=== PATIENT | female | born 1985 ===

== ENCOUNTER 2024-11-09 08:51 | Outpatient (AMB) | payer MEDICAID, SELFPAY ==
[2024-11-09 09:07] VITALS: BP 134/82; PULSE 102; RESP 17; TEMP 36.6; O2SAT 98; BMI 34.0
--- NOTE | 2024-11-09 09:07 | AMB.OBINITIA ---
Vital Signs 11/09/24 09:07 Height 1.6 m Height Method Measured Weight 87.203 kg Weight Measurement Method Standing Scale BMI 34.0 BP 134/82 H Blood Pressure Source Automatic Cuff Blood Pressure Location Right Upper Arm Position Sitting Respiration 17 Pulse 102 H Pulse Source Monitor Temp 97.9 F Temp Source Temporal Artery Scan Pulse Oximetry (%) 98 Oxygen Delivery Method Room Air Allergies/Home Meds Allergies & Medications Allergies No Known Allergies Allergy (Verified 11/09/24 09:08) Medication Reconciliation prenat.vits,thelma,[id number] 1 tab PO QDAY 03/07/20 [History Confirmed 11/09/24] levothyroxine 25 mcg tablet 25 mcg PO QDAY 04/11/20 [History Confirmed 11/09/24] labetalol 200 mg tablet 200 mg PO BID 30 days #60 tabs 11/09/24 [Rx] Intake Visit Data Collection New Patient or Established: New Patient not seen in past [address] 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 1. Little interest or pleasure in doing things: not at all 2. Feeling down, depressed, or hopeless: not at all Total score: 0 PHQ-9 3. Trouble falling or staying asleep, or sleeping too much: Not at all 4. Feeling tired or having little energy: Not at all 5. Poor appetite or overeating: Not at all 6. Feeling bad about yourself - or that you are a failure or have let yourself or your family down: Not at all 7. Trouble concentrating on things, such as reading the newspaper or watching television: Not at all 8. Moving or speaking so slowly that other people could have noticed? - Or the opposite - being so fidgety or restless that you have been moving around a lot more than usual: not at all 9. Thoughts that you would be better off or of hurting yourself in some way: Not at all Total score: 0 If you checked off any problems, how difficult have these problems made it for you to do your work, take care of things at home, or get along with other people?: not difficult at all Source: Developed by Drs. Roscoe Sebastian, Yolie Troncoso, Bryan Santillan and colleagues, with an educational brook from [employer]. Social History Living Situation History Marital Status: Lives With: Family Housing: Apartment Tobacco History Smoking Status: Never smoker Alcohol History Alcohol Intake: Never Domestic Abuse History Do You Feel Safe at Home: Yes History of Present Illness HPI Narrative Patient is a at 11 weeks and 6 days gestation, presenting for initial care. This is an IVF with the procedure performed on September 06, 2024. She reports experiencing nausea and vomiting during this . She denies any vaginal bleeding or contractions. She has a history of one previous resulting in section delivery at 37 weeks in 2020. Her first was complicated by gestational hypertension, type 2 diabetes mellitus, and hypothyroidism. Her child is healthy and developing normally. The patient reports this was achieved through IVF performed in [place]. She has been taking aspirin, levothyroxine, Aldomet, and vitamins. She mentions she has not had a recent thyroid test. Her current is considered high-risk due to her previous complications and ongoing medical conditions. She has been experiencing nausea and vomiting but denies other concerning symptoms. 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: Past Medical History Past Medical History: No Hx Neurological Disorders, Yes Hx Hypothyroidism, Yes Hx Cardiac Disorders, Yes Hx Hypertension (GHTN), No Hx Cancer, No Hx Blood Disorders, No Hx Gastrointestinal Disorders, No Hx Renal Disease, No Hx Diabetes Mellitus Type 1 and No Hx Diabetes Mellitus Type 2 OB Initial Visit OB Flowsheet OB Flowsheet Initial Weight: Not Recorded Date <del>?</del> EGA Weight BP Alb Glu CTX Pres Fundal ht FHR Mov Dilation Station Effacement Hx Notes Visit Note 11/09/24 <del>?</del> 11w 6d 87.203 kg 134/82 158 Patient is a at 11 weeks and 6 days gestation, presenting for initial care. This is an IVF with the procedure performed on September 06, 2024. She reports experiencing nausea and vomiting during this . She denies any vaginal bleeding or contractions. - Continue vitamins - Order initial lab panel - Schedule anatomy scan ultrasound at approximately 20 weeks gestation - Follow-up appointment in 1 week to review lab results - Discontinue Aldomet - Prescribe Labetalol - Order HbA1c - Continue aspirin - Continue levothyroxine - Order thyroid function tests: TSH and free T4 - Prescribe antiemetic medication - Reassess symptoms after thyroid function test results available Menstrual History Menstrual reliability: definite Flow: normal Menstrual regularity: irregular Monthly: No Age at menarche: 17 On control pills at conception: No OB History : 2 Para: 1 Hx # Pregnancies: 0 Hx Total # of Abortions (Spontaneous & Elective): 0 # of Living Children: 1 Infection History & Risk Evaluation History of STDs: none HIV risk evaluation: low risk Hepatitis B risk evaluation: low risk Patient or partner has history of Genital Herpes: No Genetic Screening & History Genetic Screening/Teratology Counseling - Includes patient, baby's father, or anyone in either family with: 1. Patient's age 35 years or older as of estimated date of delivery: Yes 2. Thalassemia (German, Malaysian, Mediterranean, or Background); MCV less than 80: No 3. Neural Tube Defect (Meningomyelocele, Spina Bifida, or Anencephaly): No 4. Congenital Heart Defect: No 5. Down Syndrome: No 6. Hussain-Sachs (Ashkenazi Caodaism, Cajun, Nepali Harvey): No 7. Lo Disease (Ashkenazi Caodaism): No 8. Familial Dysautonomia (Ashkenazi Caodaism): No 9. Sickle Cell Disease or Trait (): No 10. Hemophilia or other blood disorders: No 11. Muscular Dystrophy: No 12. Cystic Fibrosis: No 13. [place]'s Chorea: No 14. Mental Retardation/Autism: No 15. Other inherited genetic or chromosomal disorder: No 16. Maternal Metabolic Disorder (EG,TYPE 1 Diabetes, PKU): No 17. Patient or baby's father had a child with defects not listed above: No 18. Recurrent loss or a stillbirth: No 19. Medications (including supplements, vitamins, herbs or otc drugs)/illicit/recreational drugs/alcohol since last menstrual period: No 20. Any other: No Infection History 1. Live with someone with TB or exposed to TB: No 2. Rash or viral illness since last menstrual period: No 3. Hepatitis B,C: No Other (see comments) Source: [employer] Office Procedures OB Clinic LOC & Office Proc's Nursing/Assessment Patient Status: Established Patient OB Clinic Nursing Assessment: Medication Reconciliation, Update PMH in EMR and Vital Signs OB Clinic Coordination of Care: Complex Care and Chronic Disease 1-5, Consent,records obtained, informed consent, Education Simp Pt/Fam, 4+ Authorizations needed, Lab and Imaging orders and Results/Orders obtained Special Needs: Heart tones Established Patient Charge Established Patient Point Assignment: 150 Established Patient Point Charge: EP Level 4 (120-155) Assessment & Plan Diagnosis / Problem List (1) Supervision of high risk , unspecified, first trimester: Status: Acute (2) Type 2 diabetes mellitus during , antepartum: Status: Acute (3) resulting from in-vitro fertilization: Status: Acute (4) Maternal chronic hypertension in first trimester: Status: Acute Plan Problem List: ? Intrauterine ? Chronic hypertension ? Type 2 diabetes mellitus ? Hypothyroidism ? Nausea and vomiting of ? High-risk Comprehensive Plan: - Continue vitamins - Order initial lab panel - Schedule anatomy scan ultrasound at approximately 20 weeks gestation - Follow-up appointment in 1 week to review lab results - Discontinue Aldomet and prescribe Labetalol - Monitor blood pressure at follow-up visits - Order HbA1c - Continue aspirin - Continue levothyroxine - Order thyroid function tests: TSH and free T4 - Prescribe antiemetic medication - Code as high-risk for insurance purposes - Order comprehensive metabolic panel - Perform NIPT - Order maternity genome test
== END 2024-11-09 09:53 | disposition home or self-care (01) ==
LOC: HODSOBC 08:51
PROVIDERS: Supervising Provider Obstetrics & Gynecology; Visit Provider Obstetrics & Gynecology
DX: O09.521 Supervision of elderly multigravida, first trimester (principal); O09.891 Supervision of other high risk pregnancies, first trimester; O09.811 Supervision of pregnancy resulting from assisted reproductive technology, first trimester; O09.291 Supervision of pregnancy with other poor reproductive or obstetric history, first trimester; O24.111 Pre-existing type 2 diabetes mellitus, in pregnancy, first trimester; Z3A.11 11 weeks gestation of pregnancy; E11.9 Type 2 diabetes mellitus without complications; O10.911 Unspecified pre-existing hypertension complicating pregnancy, first trimester; O99.281 Endocrine, nutritional and metabolic diseases complicating pregnancy, first trimester; E03.9 Hypothyroidism, unspecified; O34.219 Maternal care for unspecified type scar from previous cesarean delivery; O21.9 Vomiting of pregnancy, unspecified; Z79.899 Other long term (current) drug therapy; Z79.890 Hormone replacement therapy
CPT/HCPCS: 99214; G0463

== ENCOUNTER 2024-11-15 10:13 | Outpatient (AMB) | payer MEDICAID, SELFPAY ==
[2024-11-15 10:38] VITALS: BP 148/83; PULSE 105; RESP 16; TEMP 36.2; O2SAT 98; BMI 34.2
--- NOTE | 2024-11-15 10:38 | OBCLNT_ITS ---
Vital Signs 11/15/24 10:38 Height 1.6 m Height Method Stated Weight 87.6 kg Weight Measurement Method Standing Scale BMI 34.2 BP 148/83 H Blood Pressure Source Automatic Cuff Blood Pressure Location Left Upper Arm Position Sitting Respiration 16 Pulse 105 H Pulse Source Monitor Temp 97.2 F Temp Source Oral Pulse Oximetry (%) 98 Oxygen Delivery Method Room Air Allergies/Home Meds Allergies & Medications Allergies No Known Allergies Allergy (Verified 11/15/24 10:39) Medication Reconciliation prenat.vits,thelma,[id number] 1 tab PO QDAY 03/07/20 [History Confirmed 11/15/24] levothyroxine 25 mcg tablet 25 mcg PO QDAY 04/11/20 [History Confirmed 11/15/24] labetalol 200 mg tablet 200 mg PO BID 30 days #60 tabs 11/09/24 [Rx Confirmed 11/15/24] ondansetron 4 mg disintegrating tablet 4 mg PO Q6H PRN nausea and vomiting 30 days #120 tabs 11/10/24 [Rx Confirmed 11/15/24] Intake Visit Data Collection New Patient or Established: Established Patient (seen at [facility] within 3 years) Reason for Visit:: OBC Seen by Clinical Staff ONLY (RN/MA): No Network Technology Instructor Required: Yes Network Technology Instructor's name/title: AMITA SKAGGS MA Do You Feel Safe at Home: Yes Authorities Contacted: N/A PCP or OBGYN visit in last 3 months: Yes Date of Last PCP or OBGYN visit: 11/09/24 Hx Now: Yes Are you currently on any form of Control: No Pain Present Currently: No Pain Scale Used: Michael-Irvin/Numerical Pain scale:: 0 Smoking Status Smoking Status: Never smoker Questionnaires Covid-19 Vaccine Questionnaire Has patient been vacinated for Covid-19 Have you been vacinated for Covid-19: Yes PHQ-9 PHQ-2 Over the last 2 weeks, how often have you been bothered by any of the following problems? 1. Little interest or pleasure in doing things: not at all 2. Feeling down, depressed, or hopeless: not at all Total score: 0 PHQ-9 3. Trouble falling or staying asleep, or sleeping too much: Not at all 4. Feeling tired or having little energy: Not at all 5. Poor appetite or overeating: Not at all 6. Feeling bad about yourself - or that you are a failure or have let yourself or your family down: Not at all 7. Trouble concentrating on things, such as reading the newspaper or watching television: Not at all 8. Moving or speaking so slowly that other people could have noticed? - Or the opposite - being so fidgety or restless that you have been moving around a lot more than usual: not at all 9. Thoughts that you would be better off or of hurting yourself in some way: Not at all Total score: 0 If you checked off any problems, how difficult have these problems made it for you to do your work, take care of things at home, or get along with other people?: not difficult at all Source: Developed by Drs. Roscoe Sebastian, Yolie Troncoso, Bryan Santillan and colleagues, with an educational brook from [employer]. 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 She is experiencing some discomfort attributed to a recent change in her medication. She mentions feeling a little bit like that, suggesting some ongoing symptoms related to the medication transition. The clinician has reassured her that this discomfort will improve with the medication adjustment. She has chronic hypertension currently managed with labetalol. The patient appears to be experiencing some side effects or adjustment issues with this medication, prompting discussion about changing medicines and the need for a stronger prescription. The clinician has prescribed a stronger medication and advised that she can take both medications to manage her symptoms more effectively. The patient conceived through IVF and has an obstetric history of A0 L0. She is currently taking labetalol for chronic hypertension and vitamins, though she recently changed her vitamins and is experiencing some discomfort during this transition. ROS: Not documented. Care OB Visit Log OB Flowsheet Initial Weight: Not Recorded Date -?-?-?-?-?-?-?-?-?-?-?-?- EGA Weight BP Alb Glu CTX Pres Fundal ht FHR Mov Dilation Station Effacement Hx Notes Visit Note 11/09/24 -?-?-?-?-?-?-?-?-?-?-?-?- 11w 6d 87.203 kg 134/82 158 Patient is a at 11 weeks and 6 days gestation, presenting for initial care. This is an IVF with the procedure performed on September 06, 2024. She reports experiencing nausea and vomiting during this . She denies any vaginal bleeding or contractions. - Continue prena naheed vitamins - Order initial lab panel - Schedule anatomy scan ultrasound at ap proximately 20 weeks gestation - Follow-up appointment in 1 week to rev iew lab results - Discontinue Aldomet - Prescribe Labetalol - Order HbA1c - Continue aspirin - Continue levothyroxine - Order thyroid function tests: TSH and free T4 - Prescribe antiemetic medication - Reassess symptoms after thyroid functi on test results available 11/15/24 -?-?-?-?--?-?-?-?-?-?-?-?- 12w 5d 87.6 kg 148/83 155 12w5d IVF with chronic HTN on labetalol, labs and genetic screening normal, FHR reassuring, mild side effects from medication. Plan: C ontinue labetalol, add stronger antiemetic, MFM referral pending for [place], f/u in 4 weeks. CHERELLE Calculator Estimated Delivery Date Method Current WG Current Estimate 05/25/25 Ultrasound #1 13w 0d Specific Issue/Plans - Hepatitis B: Negative - Hepatitis C: Negative - RPR: Nonreactive - Rubella: Immune - Blood group: A-positive - Antibody screen: Negative - HIV: Negative - Gonorrhea: Negative - Chlamydia: Negative - CBC: Hemoglobin 14.3 g/dL, Platelets 244 - Urinalysis: Trace ketones - Maternity testing: Negative for all trisomies - CMP: Glucose 80 mg/dL, Creatinine 0.5 mg/dL, Electrolytes within normal limits - Hemoglobin A1C: 5.4% - Free T4: 1.2 ng/dL - TSH: 1.47 mIU/L Notes Visit Date: 11/09/24 Last Updated by: Clemente Bermudez MD Problem List: ? Intrauterine ? Chronic hypertension ? Type 2 diabetes mellitus ? Hypothyroidism ? Nausea and vomiting of ? High-risk Exam General General Appearance: alert, in no apparent distress and healthy appearing Head Head exam: atraumatic Neck Neck exam: Present normal inspection and trachea midline Chest Chest inspection: Present normal inspection and symmetric chest wall rise External exam: Present normal external exam; Absent tenderness Neuro Neurological exam: Present oriented X3 Psych Psychiatric exam: Present normal affect and normal mood Office Procedures OB Clinic LOC & Office Proc's Nursing/Assessment Patient Status: Established Patient OB Clinic Nursing Assessment: Medication Reconciliation, Update PMH in EMR and Vital Signs OB Clinic Coordination of Care: Education Complex Pt/Fam, Consent,records obtained, informed consent, Lab and Imaging orders, Results/Orders obtained and Staff clarify orders Special Needs: Heart tones Established Patient Charge Established Patient Point Assignment: 115 Established Patient Point Charge: EP Level 3 (80-115) Assessment & Plan Diagnosis / Problem List (1) Maternal chronic hypertension in first trimester: Status: Acute (2) Supervision of high risk , unspecified, first trimester: Status: Acute (3) resulting from in-vitro fertilization: Status: Acute
== END 2024-11-15 10:58 | disposition home or self-care (01) ==
LOC: HODSOBC 10:13
PROVIDERS: Supervising Provider Obstetrics & Gynecology; Visit Provider Obstetrics & Gynecology
DX: O09.521 Supervision of elderly multigravida, first trimester (principal); O09.891 Supervision of other high risk pregnancies, first trimester; O10.911 Unspecified pre-existing hypertension complicating pregnancy, first trimester; O09.811 Supervision of pregnancy resulting from assisted reproductive technology, first trimester; O99.281 Endocrine, nutritional and metabolic diseases complicating pregnancy, first trimester; E03.9 Hypothyroidism, unspecified; Z3A.12 12 weeks gestation of pregnancy; Z79.890 Hormone replacement therapy; Z79.899 Other long term (current) drug therapy
CPT/HCPCS: 99213; G0463

== ENCOUNTER 2024-12-21 09:14 | Outpatient (AMB) | payer MEDICAID, SELFPAY ==
[2024-12-21 09:45] VITALS: BP 154/84; PULSE 98; RESP 19; TEMP 36.6; O2SAT 98; BMI 34.4
--- NOTE | 2024-12-21 09:45 | OBCLNT_ITS ---
Vital Signs 12/21/24 09:45 Height 1.6 m Height Method Stated Weight 88.11 kg Weight Measurement Method Standing Scale BMI 34.4 BP 154/84 H Blood Pressure Source Automatic Cuff Blood Pressure Location Right Upper Arm Position Sitting Respiration 19 Pulse 98 Pulse Source Monitor Temp 97.8 F Temp Source Temporal Artery Scan Pulse Oximetry (%) 98 Oxygen Delivery Method Room Air Allergies/Home Meds Allergies & Medications Allergies No Known Allergies Allergy (Verified 11/15/24 10:39) Intake Visit Data Collection New Patient or Established: Established Patient (seen at [facility] within 3 years) Reason for Visit:: 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 1. Little interest or pleasure in doing things: not at all PHQ-9 8. Moving or speaking so slowly that other people could have noticed? - Or the opposite - being so fidgety or restless that you have been moving around a lot more than usual: not at all Source: Developed by Drs. Roscoe Sebastian, Yolie Troncoso, Bryan Santillan and colleagues, with an educational brook from [employer]. 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 History Past Medical History: No Hx Neurological Disorders, Yes Hx Hypothyroidism, Yes Hx Cardiac Disorders, Yes Hx Hypertension (GHTN), No Hx Cancer, No Hx Blood Disorders, No Hx Gastrointestinal Disorders, No Hx Renal Disease, No Hx Diabetes Mellitus Type 1 and No Hx Diabetes Mellitus Type 2 Care OB Visit Log OB Flowsheet Initial Weight: Not Recorded Date -?-?-?-?-?-?-?-?-?-?-?-?- EGA Weight BP Alb Glu CTX Pres Fundal ht FHR Mov Dilation Station Effacement Hx Notes Visit Note 11/09/24 -?-?-?-?-?-?-?-?-?-?-?-?- 11w 6d 87.203 kg 134/82 158 Patient is a at 11 weeks and 6 days gestation, presenting for initial care. This is an IVF with the procedure performed on September 06, 2024. She reports experiencing nausea and vomiting during this . She denies any vaginal bleeding or contractions. - Continue prena naheed vitamins - Order initial lab panel - Schedule anatomy scan ultrasound at ap proximately 20 weeks gestation - Follow-up appointment in 1 week to rev iew lab results - Discontinue Aldomet - Prescribe Labetalol - Order HbA1c - Continue aspirin - Continue levothyroxine - Order thyroid function tests: TSH and free T4 - Prescribe antiemetic medication - Reassess symptoms after thyroid functi on test results available 11/15/24 -?-?-?-?-?-?-?-?-?-?-?-?- 12w 5d 87.6 kg 148/83 155 12w5d IVF with chronic HTN on labetalol, labs and genetic screening normal, FHR reassuring, mild side effects from medication. Plan: C ontinue labetalol, add stronger antiemetic, MFM referral pending for [place], f/u in 4 weeks. 12/21/24 -?-?-?-?-?-?-?-?-?-?-?-?- 17w 6d 88.11 kg 154/84 145 - She has chronic hypertension currently managed with labetalol. - Patient is due for AFP (alpha-fetoprotein) screening. - AFP testing due CHERELLE Calculator Estimated Delivery Date Method Current WG Current Estimate 05/25/25 Ultrasound #1 20w 4d Specific Issue/Plans - Hepatitis B: Negative - Hepatitis C: Negative - RPR: Nonreactive - Rubella: Immune - Blood group: A-positive - Antibody screen: Negative - HIV: Negative - Gonorrhea: Negative - Chlamydia: Negative - CBC: Hemoglobin 14.3 g/dL, Platelets 244 - Urinalysis: Trace ketones - Maternity testing: Negative for all trisomies - CMP: Glucose 80 mg/dL, Creatinine 0.5 mg/dL, Electrolytes within normal limits - Hemoglobin A1C: 5.4% - Free T4: 1.2 ng/dL - TSH: 1.47 mIU/L Notes Visit Date: 11/09/24 Last Updated by: Clemente Bermudez MD Problem List: ? Intrauterine ? Chronic hypertension ? Type 2 diabetes mellitus ? Hypothyroidism ? Nausea and vomiting of ? High-risk Office Procedures OBC Clinic LOC & Office Proc's Nursing/Assessment Patient Status: Established Patient OB Clinic Nursing Assessment: Medication Reconciliation, Update PMH in EMR and Vital Signs OB Clinic Coordination of Care: Complex Care and Chronic Disease 1-5, Education Complex Pt/Fam, Consent,records obtained, informed consent, 1 Ins Authorization, Lab and Imaging orders and Results/Orders obtained Special Needs: Heart tones Established Patient Charge Established Patient Point Assignment: 145 Established Patient Point Charge: EP Level 3 (80-115) Assessment & Plan Diagnosis / Problem List (1) Acute vaginitis: Status: Acute (2) Maternal chronic hypertension in first trimester: Status: Acute (3) Supervision of high risk , unspecified, first trimester: Status: Acute Plan Problem List - - Chronic hypertension Assessment The patient is a 8 at 10 weeks and 6 days gestation with chronic hypertension currently managed on labetalol, with today's blood pressure reading of 154/84 mmHg indicating suboptimal control. The patient is due for AFP screening. Plan - AFP testing due 1. Progress Reviewed gestational age, growth, and heart rate. Planned frequent visits (every 2 weeks until 36 weeks, then weekly). 2. Instructed patient to monitor movements and report decreases immediately. 3. Testing Counseled on routine third-trimester labs per guidelines. Discussed potential need for ultrasound or monitoring based on risk factors. 4. Preeclampsia Precaution Educated on preeclampsia signs: severe headache, vision changes, right upper quadrant pain, sudden swelling. Advised urgent reporting of symptoms and discussed blood pressure monitoring if high risk. 5. Labor Precautions Reviewed labor signs: regular contractions, pelvic pressure, back pain, bleeding, or fluid leakage. Instructed to seek immediate care for these symptoms. 6. Lifestyle and Delivery Preparation Reinforced vitamins, nutrition, and safe activity. Discussed plan, pain management, and . Advised on labor preparation (e.g., hospital bag) and expectations. 7. Psychosocial Support Assessed emotional well-being and offered resources for mental health or parenting support.
== END 2024-12-21 10:08 | disposition home or self-care (01) ==
LOC: HODSOBC 09:14
PROVIDERS: Supervising Provider Obstetrics & Gynecology; Visit Provider Obstetrics & Gynecology
DX: O09.892 Supervision of other high risk pregnancies, second trimester (principal); O23.592 Infection of other part of genital tract in pregnancy, second trimester; N76.0 Acute vaginitis; O10.912 Unspecified pre-existing hypertension complicating pregnancy, second trimester; O09.522 Supervision of elderly multigravida, second trimester; Z3A.17 17 weeks gestation of pregnancy; Z79.899 Other long term (current) drug therapy
CPT/HCPCS: 99213; G0463

== ENCOUNTER 2025-01-18 10:11 | Outpatient (AMB) | payer MEDICAID, SELFPAY ==
[2025-01-18 10:26] VITALS: BP 137/78; PULSE 102; RESP 18; TEMP 36.2; O2SAT 98; BMI 34.6
--- NOTE | 2025-01-18 10:26 | OBCLNT_ITS ---
Vital Signs 01/18/25 10:26 Height 1.6 m Height Method Stated Weight 88.677 kg Weight Measurement Method Standing Scale BMI 34.6 BP 137/78 H Blood Pressure Source Automatic Cuff Blood Pressure Location Left Upper Arm Position Sitting Respiration 18 Pulse 102 H Pulse Source Monitor Temp 97.2 F Temp Source Oral Pulse Oximetry (%) 98 Oxygen Delivery Method Room Air Allergies/Home Meds Allergies & Medications Allergies No Known Allergies Allergy (Verified 01/18/25 10:28) Medication Reconciliation prenat.vits,thelma,[id number] 1 tab PO QDAY 03/07/20 [History Confirmed 01/18/25] levothyroxine 25 mcg tablet 25 mcg PO QDAY 04/11/20 [History Confirmed 01/18/25] labetalol 200 mg tablet 400 mg (2 x 200 mg) PO BID 30 days #120 tabs 12/21/24 [Rx Confirmed 01/18/25] Intake Visit Data Collection New Patient or Established: Established Patient (seen at [facility] within 3 years) Reason for Visit:: OBC Seen by Clinical Staff ONLY (RN/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 Do You Feel Safe at Home: Yes Authorities Contacted: N/A PCP or OBGYN visit in last 3 months: Yes Date of Last PCP or OBGYN visit: 12/21/24 Hx Now: Yes Are you currently on any form of Control: No Pain Present Currently: No Pain Scale Used: Michael-Irvin/Numerical Pain scale:: 0 Smoking Status Smoking Status: Never smoker Immunizations Flu Vaccine in the Last 12 Months: No Flu Vaccine Exclusion Criteria: No Exclusion Criteria Questionnaires Covid-19 Vaccine Questionnaire Has patient been vacinated for Covid-19 Have you been vacinated for Covid-19: Yes PHQ-9 PHQ-2 Over the last 2 weeks, how often have you been bothered by any of the following problems? 1. Little interest or pleasure in doing things: not at all 2. Feeling down, depressed, or hopeless: not at all Total score: 0 PHQ-9 3. Trouble falling or staying asleep, or sleeping too much: Not at all 4. Feeling tired or having little energy: Not at all 5. Poor appetite or overeating: Not at all 6. Feeling bad about yourself - or that you are a failure or have let yourself or your family down: Not at all 7. Trouble concentrating on things, such as reading the newspaper or watching television: Not at all 8. Moving or speaking so slowly that other people could have noticed? - Or the opposite - being so fidgety or restless that you have been moving around a lot more than usual: not at all 9. Thoughts that you would be better off or of hurting yourself in some way: Not at all Total score: 0 If you checked off any problems, how difficult have these problems made it for you to do your work, take care of things at home, or get along with other people?: not difficult at all Source: Developed by Drs. Roscoe Sebastian, Yolie Troncoso, Bryan Santillan and colleagues, with an educational brook from [employer]. 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: Past Medical History Past Medical History: No Hx Neurological Disorders, Yes Hx Hypothyroidism, Yes Hx Cardiac Disorders, Yes Hx Hypertension (GHTN), No Hx Cancer, No Hx Blood Disorders, No Hx Gastrointestinal Disorders, No Hx Renal Disease, No Hx Diabetes Mellitus Type 1 and No Hx Diabetes Mellitus Type 2 Care OB Visit Log OB Flowsheet Initial Weight: Not Recorded Date -?-?-?-?-?-?-?-?-?-?-?-?- EGA Weight BP Alb Glu CTX Pres Fundal ht FHR Mov Dilation Station Effacement Hx Notes Visit Note 11/09/24 -?-?-?-?-?-?-?-?-?-?-?-?- 11w 6d 87.203 kg 134/82 158 Patient is a at 11 weeks and 6 days gestation, presenting for initial care. This is an IVF with the procedure performed on September 06, 2024. She reports experiencing nausea and vomiting during this . She denies any vaginal bleeding or contractions. - Continue prena naheed vitamins - Order initial lab panel - Schedule anatomy scan ultrasound at ap proximately 20 weeks gestation - Follow-up appointment in 1 week to rev iew lab results - Discontinue Aldomet - Prescribe Labetalol - Order HbA1c - Continue aspirin - Continue levothyroxine - Order thyroid function tests: TSH and free T4 - Prescribe antiemetic medication - Reassess symptoms after thyroid functi on test results available 11/15/24 -?-?-?-?-?-?-?-?-?-?-?-?- 12w 5d 87.6 kg 148/83 155 12w5d IVF with chronic HTN on labetalol, labs and genetic screening normal, FHR reassuring, mild side effects from medication. Plan: C ontinue labetalol, add stronger antiemetic, MFM referral pending for Leia, f/u in 4 weeks. 12/21/24 -?-?-?-?-?-?-?-?-?-?-?-?- 17w 6d 88.11 kg 154/84 145 - She has chronic hypertension currently managed with labetalol. - Patient is due for AFP (alpha-fetoprotein) screening. - AFP testing due 01/18/25 -?-?-?-?-?-?-?-?-?-?-?-?- 21w 6d 88.677 kg 137/78 absent cephalic 22 154 active - She reports improved blood pressure control since last visit. - Blood pressure at last appointment w as 150/84 mmHg - Current blood pressure improved to 1 37/78 mmHg - Patient switched from Aldomet to Labet alol for blood pressure management. - Initially prescribed 2 tablets in mo rning and 2 at night - Dose was reduced to 1 tablet due to visual symptoms and improved control - She monitors blood pressure at home an d reports home readings are typically lower than office measurements. - Patient is taking baby aspirin as pres cribed. - She had MFM ultrasound on January 10, 2025. - Patient has upcoming echocardiog yoanna scheduled for January 24, 2025. - This is an IVF with history of di-di twins with twin loss in first trimester. - Continue labet alol for gestational hypertension management - Continue baby aspirin - Return in 4 weeks for next vi sit - Glucose tolerance test to be performed at next visit - echocardiogram scheduled for Jan - Patient advised not to check blood pre ssure daily to avoid anxiety CHERELLE Calculator Estimated Delivery Date Method Current WG Current Estimate 05/25/25 Ultrasound #1 21w 6d Specific Issue/Plans - Hepatitis B: Negative - Hepatitis C: Negative - RPR: Nonreactive - Rubella: Immune - Blood group: A-positive - Antibody screen: Negative - HIV: Negative - Gonorrhea: Negative - Chlamydia: Negative - CBC: Hemoglobin 14.3 g/dL, Platelets 244 - Urinalysis: Trace ketones - Maternity testing: Negative for all trisomies - CMP: Glucose 80 mg/dL, Creatinine 0.5 mg/dL, Electrolytes within normal limits - Hemoglobin A1C: 5.4% - Free T4: 1.2 ng/dL - TSH: 1.47 mIU/L Notes Visit Date: 01/18/25 Last Updated by: Clemente Bermudez MD - [facility] ultrasound (01/10/2025): - Estimated weight (EFW): 384 grams, 90th percentile - Cervical length: 3.77 centimeters - Detailed anatomy survey: within normal limits - Posterior placenta - Di-di twins with twin loss in first trimester and remnants of previous sac without crown rump length or cardiac activity Problem List - Gestational hypertension - Hypothyroidism - Twin with twin loss in first trimester - IVF Visit Date: 11/09/24 Last Updated by: Clemente Bermudez MD Problem List: ? Intrauterine ? Chronic hypertension ? Type 2 diabetes mellitus ? Hypothyroidism ? Nausea and vomiting of ? High-risk Office Procedures OBC Clinic LOC & Office Proc's Nursing/Assessment Patient Status: Established Patient OB Clinic Nursing Assessment: Medication Reconciliation, Update PMH in EMR and Vital Signs OB Clinic Coordination of Care: Consent,records obtained, informed consent, Education Simp Pt/Fam, Lab and Imaging orders, Results/Orders obtained and Staff clarify orders Special Needs: Heart tones Established Patient Charge Established Patient Point Assignment: 110 Established Patient Point Charge: EP Level 3 (80-115) Assessment & Plan Diagnosis / Problem List (1) Gestational [-induced] hypertension without significant proteinuria, unspecified trimester: Status: Acute (2) Hypothyroidism, unspecified: Status: Acute (3) Continuing after spontaneous of one fetus or more, unspecified trimester, not applicable or unspecified: Status: Acute Plan Problem List - Gestational hypertension - Hypothyroidism - Twin with twin loss in first trimester - IVF Assessment 21 weeks and 6 days gestational age IVF with gestational hypertension showing improvement from previous blood pressure of 150/84 to current 137/78 on labetalol therapy. Patient has di-di twins with twin loss in first trimester and remnants of previous sac without crown or cardiac activity. Recent [facility] ultrasound on 01/10/2025 shows estimated weight of 384 grams at 90th percentile with detailed anatomy survey within normal limits. Cervical length measures 3.77 centimeters. Patient also has well-controlled hypothyroidism on levothyroxine with posterior placenta noted. heart rate is 154 bpm which is normal. Plan - Continue labetalol for gestational hypertension management - Continue baby aspirin - Return in 4 weeks for next visit - Glucose tolerance test to be performed at next visit - echocardiogram scheduled for January 24, 2025 - Patient advised not to check blood pressure daily to avoid anxiety 1. Progress Reviewed gestational age (21 weeks 6 days), growth (EFW 384 grams, 90th percentile), and heart rate (154 bpm, normal). Planned frequent visits (every 2 weeks until 36 weeks, then weekly). 2. Instructed patient to monitor movements and report decreases immediately. 3. Testing Counseled on routine third-trimester labs per guidelines (glucose test scheduled for next visit). Discussed potential need for ultrasound or monitoring based on risk factors ( echo scheduled for 01/24/2025, [facility] follow-up). 4. Preeclampsia Precaution Educated on preeclampsia signs: severe headache, vision changes, right upper q uadrant pain, sudden swelling. Advised urgent reporting of symptoms and discussed blood pressure monitoring if high risk (patient has gestational hypertension, currently on labetalol). 5. Labor Precautions Reviewed labor signs: regular contractions, pelvic pressure, back pain, bleeding, or fluid leakage. Instructed to seek immediate care for these symptoms. 6. Lifestyle and Delivery Preparation Reinforced vitamins, nutrition, and safe activity (taking baby aspirin as prescribed). Discussed plan, pain management, and . Advised on labor preparation (e.g., hospital bag) and expectations. 7. Psychosocial Support Assessed emotional well-being and offered resources for mental health or parenting support.
== END 2025-01-18 10:47 | disposition home or self-care (01) ==
LOC: HODSOBC 10:11
PROVIDERS: Supervising Provider Obstetrics & Gynecology; Visit Provider Obstetrics & Gynecology
DX: O09.892 Supervision of other high risk pregnancies, second trimester (principal); O13.2 Gestational [pregnancy-induced] hypertension without significant proteinuria, second trimester; O99.282 Endocrine, nutritional and metabolic diseases complicating pregnancy, second trimester; E03.9 Hypothyroidism, unspecified; O09.812 Supervision of pregnancy resulting from assisted reproductive technology, second trimester; O30.042 Twin pregnancy, dichorionic/diamniotic, second trimester; O31.12X0 Continuing pregnancy after spontaneous abortion of one fetus or more, second trimester, not applicable or unspecified; Z3A.21 21 weeks gestation of pregnancy; Z79.890 Hormone replacement therapy
CPT/HCPCS: 99213; G0463

== ENCOUNTER 2025-02-15 13:40 | Observation (INO) | payer MEDICAID, SELFPAY ==
[2025-02-15] VITALS (15 sets, daily range): BP systolic 120–142; BP diastolic 65–72; PULSE 107–117; RESP 22–99; TEMP 36.9; O2SAT 98–100; BMI 35.4
[2025-02-15] MEDS: guaiFENesin/COD SYRUP 5 ML UDC PO (14:51)
[2025-02-15 15:20] LABS: COVID-19 Antigen (In-House) Negative (Negative)
[2025-02-15 15:22] LABS: Influenza A Ag Positive; Influenza B Ag Negative
== END 2025-02-15 15:36 | disposition home or self-care (01) ==
PROVIDERS: Admitting Provider Obstetrics & Gynecology; Visit Provider Obstetrics & Gynecology
DX: O26.892 Other specified pregnancy related conditions, second trimester (principal); Z3A.25 25 weeks gestation of pregnancy; R05.9 Cough, unspecified; M54.6 Pain in thoracic spine; R10.9 Unspecified abdominal pain
CPT/HCPCS: 59025; 59899; 87502; 87811; A9270

== ENCOUNTER 2025-02-21 10:53 | Outpatient (AMB) | payer MEDICAID, SELFPAY ==
--- NOTE | 2025-02-21 10:58 | OBCLNT_ITS ---
Vital Signs 02/21/25 11:13 Height 1.6 m Height Method Stated Weight 90.378 kg Weight Measurement Method Standing Scale BMI 35.3 BP 123/84 Blood Pressure Source Automatic Cuff Blood Pressure Location Left Upper Arm Position Sitting Respiration 18 Pulse 92 Pulse Source Monitor Temp 97.7 F Temp Source Oral Pulse Oximetry (%) 98 Oxygen Delivery Method Room Air Allergies/Home Meds Allergies & Medications Allergies No Known Allergies Allergy (Verified 02/21/25 11:13) Medication Reconciliation prenat.vits,thelma,[id number]-[id number] 1 tab PO QDAY 03/07/20 [History Confirmed 02/21/25] labetalol 200 mg tablet 400 mg (2 x 200 mg) PO BID 30 days #120 tabs 12/21/24 [Rx Confirmed 02/21/25] levothyroxine 25 mcg tablet 25 mcg PO QDAY 90 days #90 tabs 01/23/25 [Rx Confirmed 02/21/25] azithromycin 250 mg tablet (Zithromax Z-Michael) See Rx Instructions PO .COMPLEX #6 tabs 02/15/25 [Rx Confirmed 02/21/25] promethazine 6.25 mg-codeine 10 mg/5 mL syrup 5 ml PO Q6H PRN cough #118 mL 02/15/25 [Rx Confirmed 02/21/25] Immunizations Immunizations Flu Vaccine in the Last 12 Months: No Flu Vaccine Exclusion Criteria: Refused by Patient Care OB Visit Log OB Flowsheet Initial Weight: Not Recorded Date -?-?-?-?-?-?-?-?-?-?-?-?- EGA Weight BP Alb Glu CTX Pres Fundal ht FHR Mov Dilation Station Effacement Hx Notes Visit Note 11/09/24 -?-?--?-?-?-?-?-?-?-?-?-?- 11w 6d 87.203 kg 134/82 158 Patient is a at 11 weeks and 6 days gestation, presenting for initial care. This is an IVF with the procedure performed on September 06, 2024. She reports experiencing nausea and vomiting during this . She denies any vaginal bleeding or contractions. - Continue prena naheed vitamins - Order initial lab panel - Schedule anatomy scan ultrasound at ap proximately 20 weeks gestation - Follow-up appointment in 1 week to rev iew lab results - Discontinue Aldomet - Prescribe Labetalol - Order HbA1c - Continue aspirin - Continue levothyroxine - Order thyroid function tests: TSH and free T4 - Prescribe antiemetic medication - Reassess symptoms after thyroid functi on test results available 11/15/24 -?-?-?-?-?-?-?-?-?-?-?-?- 12w 5d 87.6 kg 148/83 155 12w5d IVF with chronic HTN on labetalol, labs and genetic screening normal, FHR reassuring, mild side effects from medication. Plan: C ontinue labetalol, add stronger antiemetic, MFM referral pending for Leia, f/u in 4 weeks. 12/21/24 -?-?-?-?-?-?-?-?-?-?-?-?- 17w 6d 88.11 kg 154/84 145 - She has chronic hypertension currently managed with labetalol. - Patient is due for AFP (alpha-fetoprotein) screening. - AFP testing due 01/18/25 -?-?-?-?-?-?-?-?-?-?-?-?- 21w 6d 88.677 kg 137/78 absent cephalic 22 154 active - She reports improved blood pressure control since last visit. - Blood pressure at last appointment w as 150/84 mmHg - Current blood pressure improved to 1 37/78 mmHg - Patient switched from Aldomet to Labet alol for blood pressure management. - Initially prescribed 2 tablets in mo rning and 2 at night - Dose was reduced to 1 tablet due to visual symptoms and improved control - She monitors blood pressure at home an d reports home readings are typically lower than office measurements. - Patient is taking baby aspirin as pres cribed. - She had MFM ultrasound on January 10, 2025. - Patient has upcoming echocardiog yoanna scheduled for January 24, 2025. - This is an IVF with history of di-di twins with twin loss in first trimester. - Continue labet alol for gestational hypertension management - Continue baby aspirin - Return in 4 weeks for next vi sit - Glucose tolerance test to be performed at next visit - echocardiogram scheduled for Jan - Patient advised not to check blood pre ssure daily to avoid anxiety 02/21/25 -?-?-?-?-?-?-?-?-?-?-?-?- 26w 5d 90.378 kg 123/84 absent cephalic 27 149 active - She reports that the baby is active. - She denies headaches or other symptoms . - She has been taking medication for a c ough but plans to discontinue once the cough resolves. - Obtain monoglu cose test for diabetes screening - Repeat thyroid labs - Follow up in 4 weeks - Discontinue cough medication once coug h resolves CHERELLE Calculator Estimated Delivery Date Method Current WG Current Estimate 05/25/25 Ultrasound #1 30w 4d Specific Issue/Plans - Hepatitis B: Negative - Hepatitis C: Negative - RPR: Nonreactive - Rubella: Immune - Blood group: A-positive - Antibody screen: Negative - HIV: Negative - Gonorrhea: Negative - Chlamydia: Negative - CBC: Hemoglobin 14.3 g/dL, Platelets 244 - Urinalysis: Trace ketones - Maternity testing: Negative for all trisomies - CMP: Glucose 80 mg/dL, Creatinine 0.5 mg/dL, Electrolytes within normal limits - Hemoglobin A1C: 5.4% - Free T4: 1.2 ng/dL - TSH: 1.47 mIU/L Notes Visit Date: 01/18/25 Last Updated by: Clemente Bermudez MD - [facility] ultrasound (01/10/2025): - Estimated weight (EFW): 384 grams, 90th percentile - Cervical length: 3.77 centimeters - Detailed anatomy survey: within normal limits - Posterior placenta - Di-di twins with twin loss in first trimester and remnants of previous sac without crown rump length or cardiac activity Problem List - Gestational hypertension - Hypothyroidism - Twin with twin loss in first trimester - IVF Visit Date: 11/09/24 Last Updated by: Clemente Bermudez MD Problem List: ? Intrauterine ? Chronic hypertension ? Type 2 diabetes mellitus ? Hypothyroidism ? Nausea and vomiting of ? High-risk Office Procedures OBC Clinic LOC & Office Proc's Nursing/Assessment Patient Status: Established Patient OB Clinic Nursing Assessment: Medication Reconciliation, Update PMH in EMR and Vital Signs OB Clinic Coordination of Care: AMA, Complex Care and Chronic Disease 1-5, Consent,records obtained, informed consent, Education Simp Pt/Fam, 1 Ins Authorization, Lab and Imaging orders, Results/Orders obtained and Staff clarify orders Special Needs: Heart tones Established Patient Charge Established Patient Point Assignment: 170 Established Patient Point Charge: EP Level 5 (160-above) Assessment & Plan Diagnosis / Problem List (1) Continuing after spontaneous of one fetus or more, unspecified trimester, not applicable or unspecified: Status: Acute (2) Hypothyroidism, unspecified: Status: Acute (3) Gestational [-induced] hypertension without significant proteinuria, unspecified trimester: Status: Acute Plan Problem List - at 26 weeks and 5 days gestation - Gestational hypertension - Hypothyroidism Assessment The patient is a 26 weeks and 5 days female with gestational hypertension and hypothyroidism. heart rate is 149-150 bpm, which is within normal limits. The patient reports movement and denies headaches or other concerning symptoms. She requires glucose testing for diabetes screening and repeat thyroid function studies. Plan - Obtain monoglucose test for diabetes screening - Repeat thyroid labs - Follow up in 4 weeks - Discontinue cough medication once cough resolves 1. Progress Reviewed gestational age (26 weeks and 5 days), growth, and heart r ate (149-150 bpm, normal). Planned frequent visits (every 2 weeks until 36 weeks, then weekly). 2. Instructed patient to monitor movements and report decreases immediately. 3. Testing Counseled on routine third-trimester labs per guidelines (glucose test for diabetes screening and thyroid recheck ordered). Discussed potential need for ultrasound or monitoring based on risk fac tors. 4. Preeclampsia Precaution Educated on preeclampsia signs: severe headache, vision changes, right upper quadrant pain, sudden swelling. Advised urgent reporting of symptoms and discussed blood pressure monitoring if high risk. 5. Labor Precautions Reviewed labor signs: regular contractions, pelvic pressure, back pain, bleeding, or fluid leakage. Instructed to seek immediate care for these symptoms. 6. Lifestyle and Delivery Preparation Reinforced vitamins, nutrition, and safe activity. Discussed plan, pain management, and . Advised on labor preparation (e.g., hospital bag) and expectations. 7. Psychosocial Support Assessed emotional well-being and offered resources for mental health or parenting support.
[2025-02-21 11:13] VITALS: BP 123/84; PULSE 92; RESP 18; TEMP 36.5; O2SAT 98; BMI 35.3
== END 2025-02-21 11:14 | disposition home or self-care (01) ==
LOC: HODSOBC 10:53
PROVIDERS: Supervising Provider Obstetrics & Gynecology; Visit Provider Obstetrics & Gynecology
DX: O09.892 Supervision of other high risk pregnancies, second trimester (principal); O99.282 Endocrine, nutritional and metabolic diseases complicating pregnancy, second trimester; E03.9 Hypothyroidism, unspecified; O13.2 Gestational [pregnancy-induced] hypertension without significant proteinuria, second trimester; O31.12X1 Continuing pregnancy after spontaneous abortion of one fetus or more, second trimester, fetus 1; O30.042 Twin pregnancy, dichorionic/diamniotic, second trimester; O09.522 Supervision of elderly multigravida, second trimester; O99.891 Other specified diseases and conditions complicating pregnancy; R05.9 Cough, unspecified; O09.812 Supervision of pregnancy resulting from assisted reproductive technology, second trimester; Z3A.26 26 weeks gestation of pregnancy; Z79.890 Hormone replacement therapy
CPT/HCPCS: 99215; G0463

== ENCOUNTER 2025-03-21 08:52 | Outpatient (AMB) | payer MEDICAID, SELFPAY ==
[2025-03-21 09:07] VITALS: BP 127/82; PULSE 85; RESP 18; TEMP 36.3; O2SAT 98; BMI 35.6
--- NOTE | 2025-03-21 09:07 | OBCLNT_ITS ---
Vital Signs 03/21/25 09:07 Height 1.6 m Height Method Stated Weight 91.172 kg Weight Measurement Method Standing Scale BMI 35.6 BP 127/82 Blood Pressure Source Automatic Cuff Blood Pressure Location Right Upper Arm Position Sitting Respiration 18 Pulse 85 Pulse Source Monitor Temp 97.4 F Temp Source Temporal Artery Scan Pulse Oximetry (%) 98 Oxygen Delivery Method Room Air Allergies/Home Meds Allergies & Medications Allergies No Known Allergies Allergy (Verified 03/21/25 09:07) Medication Reconciliation prenat.vits,thelma,[id number]-[id number] 1 tab PO QDAY 03/07/20 [History Confirmed 03/21] labetalol 200 mg tablet 400 mg (2 x 200 mg) PO BID 30 days #120 tabs 12/21/24 [Rx Confirmed 03/21/25] levothyroxine 25 mcg tablet 25 mcg PO QDAY 90 days #90 tabs 01/23/25 [Rx Confirmed 03/21/25] azithromycin 250 mg tablet (Zithromax Z-Michael) See Rx Instructions PO .COMPLEX #6 tabs 02/15/25 [Rx Confirmed 03/21/25] promethazine 6.25 mg-codeine 10 mg/5 mL syrup 5 ml PO Q6H PRN cough #118 mL 02/15/25 [Rx Confirmed 03/21/25] Immunizations Immunizations Flu Vaccine in the Last 12 Months: No Flu Vaccine Exclusion Criteria: No Exclusion Criteria Care OB Visit Log OB Flowsheet Initial Weight: Not Recorded Date -?-?-?-?-?-?-?-?-?-?-?-?- EGA Weight BP Alb Glu CTX Pres Fundal ht FHR Mov Dilation Station Effacement Hx Notes Visit Note 11/09/24 -?-?-?-?-?-?-?-?-?-?-?-?- 11w 6d 87.203 kg 134/82 158 Patient is a at 11 weeks and 6 days gestation, presenting for initial care. This is an IVF with the procedure performed on September 06, 2024. She reports experiencing nausea and vomiting during this . She denies any vaginal bleeding or contractions. - Continue prena naheed vitamins - Order initial lab panel - Schedule anatomy scan ultrasound at ap proximately 20 weeks gestation - Follow-up appointment in 1 week to rev iew lab results - Discontinue Aldomet - Prescribe Labetalol - Order HbA1c - Continue aspirin - Continue levothyroxine - Order thyroid function tests: TSH and free T4 - Prescribe antiemetic medication - Reassess symptoms after thyroid functi on test results available 11/15/24 -?-?-?-?-?-?-?-?-?-?-?-?- 12w 5d 87.6 kg 148/83 155 12w5d IVF with chronic HTN on labetalol, labs and genetic screening normal, FHR reassuring, mild side effects from medication. Plan: C ontinue labetalol, add stronger antiemetic, MFM referral pending for Leia, f/u in 4 weeks. 12/21/24 -?-?-?-?-?-?-?-?-?-?-?-?- 17w 6d 88.11 kg 154/84 145 - She has chronic hypertension currently managed with labetalol. - Patient is due for AFP (alpha-fetoprotein) screening. - AFP testing due 01/18/25 -?-?-?-?-?-?-?-?-?-?-?-?- 21w 6d 88.677 kg 137/78 absent cephalic 22 154 active - She reports improved blood pressure control since last visit. - Blood pressure at last appointment w as 150/84 mmHg - Current blood pressure improved to 1 37/78 mmHg - Patient switched from Aldomet to Labet alol for blood pressure management. - Initially prescribed 2 tablets in mo rning and 2 at night - Dose was reduced to 1 tablet due to visual symptoms and improved control - She monitors blood pressure at home an d reports home readings are typically lower than office measurements. - Patient is taking baby aspirin as pres cribed. - She had MFM ultrasound on January 10, 2025. - Patient has upcoming echocardiog yoanna scheduled for January 24, 2025. - This is an IVF with history of di-di twins with twin loss in first trimester. - Continue labet alol for gestational hypertension management - Continue baby aspirin - Return in 4 weeks for next vi sit - Glucose tolerance test to be performed at next visit - echocardiogram scheduled for Jan - Patient advised not to check blood pre ssure daily to avoid anxiety 02/21/25 -?-?-?-?-?-?-?-?-?-?-?-?- 26w 5d 90.378 kg 123/84 absent cephalic 27 149 active - She reports that the baby is active. - She denies headaches or other symptoms . - She has been taking medication for a c ough but plans to discontinue once the cough resolves. - Obtain monoglu cose test for diabetes screening - Repeat thyroid labs - Follow up in 4 weeks - Discontinue cough medication once coug h resolves 03/21/25 -?-?-?-?-?-?-?-?-?-?-?-?- 30w 5d 91.172 kg 127/82 absent cephalic 31 145 active - She had an elevated 1-hour glucose screening test followed by a 3-hour glucose tolerance test. - 3-hour GTT results showed fasting gl ucose of 68 mg/dL, 1-hour at 174 mg/dL, 2-hour at 180 mg/dL, and 3-hour at 120 mg/dL - Only one value out of the 3-hour maurice t was elevated - Patient reports the baby is active. - She has a scheduled follow-up appointment in [place] on March 24. - Continue dietary modifications avoiding high carbohydrate foods and sugar (no medications needed at this time) - Return to scheduled [facility] ultrasound latoya ointment on April 12 - Follow-up visit in 4 weeks, t hen weekly visits thereafter - Disability leave initiated from today' s date CHERELLE Calculator Estimated Delivery Date Method Current WG Current Estimate 05/25/25 Ultrasound #1 30w 5d Specific Issue/Plans - Hepatitis B: Negative - Hepatitis C: Negative - RPR: Nonreactive - Rubella: Immune - Blood group: A-positive - Antibody screen: Negative - HIV: Negative - Gonorrhea: Negative - Chlamydia: Negative - CBC: Hemoglobin 14.3 g/dL, Platelets 244 - Urinalysis: Trace ketones - Maternity testing: Negative for all trisomies - CMP: Glucose 80 mg/dL, Creatinine 0.5 mg/dL, Electrolytes within normal limits - Hemoglobin A1C: 5.4% - Free T4: 1.2 ng/dL - TSH: 1.47 mIU/L Notes Visit Date: 03/21/25 Last Updated by: Clemente Bermudez MD Laboratory, Imaging, and Diagnostic Test Results - 3-hour glucose tolerance test: - Fastin mg/dL - 1 hour: 174 mg/dL (elevated) - 2 hours: 180 mg/dL (elevated) - 3 hours: 120 mg/dL - [facility] ultrasound (02/28/2025): - Single living fetus - Clinical gestational age: 26 weeks 6 days - CHERELLE: 05/30/2025 - Accelerated growth with LGA (large for gestational age) - Composite age: 28 weeks 1 day - Estimated weight: 1273 grams (97th percentile) - Abdominal circumference: 94th percentile - Amniotic fluid volume: within normal limits - Placenta: posterior, no previa - presentation: breech Visit Date: 01/18/25 Last Updated by: Clemente Bermudez MD - [facility] ultrasound (01/10/2025): - Estimated weight (EFW): 384 grams, 90th percentile - Cervical length: 3.77 centimeters - Detailed anatomy survey: within normal limits - Posterior placenta - Di-di twins with twin loss in first trimester and remnants of previous sac without crown rump length or cardiac activity Problem List - Gestational hypertension - Hypothyroidism - Twin with twin loss in first trimester - IVF Visit Date: 11/09/24 Last Updated by: Clemente Bermudez MD Problem List: ? Intrauterine ? Chronic hypertension ? Type 2 diabetes mellitus ? Hypothyroidism ? Nausea and vomiting of ? High-risk Office Procedures [facility] LOC & Office Proc's Nursing/Assessment Patient Status: Established Patient OB Clinic Nursing Assessment: Medication Reconciliation, Update PMH in EMR and Vital Signs OB Clinic Coordination of Care: Complex Care and Chronic Disease 1-5, Education Complex Pt/Fam, Consent,records obtained, informed consent, Lab and Imaging orders, Results/Orders obtained and Staff clarify orders Special Needs: Heart tones Established Patient Charge Established Patient Point Assignment: 140 Established Patient Point Charge: EP Level 4 (120-155) Assessment & Plan Diagnosis / Problem List (1) Type 2 diabetes mellitus during , antepartum: Status: Acute (2) Gestational [-induced] hypertension without significant proteinuria, unspecified trimester: Status: Acute (3) Hypothyroidism, unspecified: Status: Acute Plan Problem List - Gestational diabetes mellitus - macrosomia - Breech presentation Assessment 30-week 5-day patient with abnormal glucose tolerance test showing one elevated value out of four (1-hour: 174 mg/dL, 2-hour: 180 mg/dL) with normal fasting (68 mg/dL) and 3-hour (120 mg/dL) values, not meeting criteria for gestational diabetes diagnosis. Maternal- medicine ultrasound from 02/28/2025 demonstrates accelerated growth with estimated weight of 1273 grams at the 97th percentile and abdominal circumference at 94th percentile, consistent with dyphb-lur-wyphjskfbau-age fetus. presentation is breech with head up and buttocks down. Blood pressure is normal at 145 mmHg. Patient reports normal activity and amniotic fluid volume is within normal limits. Plan - Continue dietary modifications avoiding high carbohydrate foods and sugar (no medications needed at this time) - Return to scheduled [facility] ultrasound appointment on April 12 - Follow-up visit in 4 weeks, then weekly visits thereafter - Disability leave initiated from today's date 1. Progress Reviewed gestational age at 30 weeks 5 days, growth showing large for gestational age (EFW 1273 grams, 97th percentile), and heart rate. Planned frequent visits (every 4 weeks until 34 weeks, then weekly). 2. Instructed patient to monitor movements and report decreases immediately. 3. Testing Counseled on routine third-trimester labs per guidelines. Discussed potential need for ultrasound or monitoring based on risk factors including gestational diabetes screening results and macrosomia. 4. Preeclampsia Precaution Educated on preeclampsia signs: severe headache, vision changes, right upper quadrant pain, sudden swelling. Advised urgent reporting of symptoms and discussed blood pressure monitoring for patient with gestational hypertension on labetalol. 5. Labor Precautions Reviewed labor signs: regular contractions, pelvic pressure, back pain, bleeding, or fluid leakage. Instructed to seek immediate care for these symptoms. 6. Lifestyle and Delivery Preparation Reinforced vitamins, nutrition focusing on diabetic diet with avoidance of high carbohydrate and sugar foods, and safe activity. Discussed plan considerations given breech presentation, pain management, and . Advised on labor preparation and expectations. 7. Psychosocial Support Assessed emotional well-being and offered resources for mental health or parenting support including disability paperwork assistance.
== END 2025-03-21 09:20 | disposition home or self-care (01) ==
LOC: HODSOBC 08:52
PROVIDERS: Supervising Provider Obstetrics & Gynecology; Visit Provider Obstetrics & Gynecology
DX: O09.893 Supervision of other high risk pregnancies, third trimester (principal); O09.813 Supervision of pregnancy resulting from assisted reproductive technology, third trimester; O09.523 Supervision of elderly multigravida, third trimester; O32.1XX0 Maternal care for breech presentation, not applicable or unspecified; O36.63X0 Maternal care for excessive fetal growth, third trimester, not applicable or unspecified; O99.283 Endocrine, nutritional and metabolic diseases complicating pregnancy, third trimester; E03.9 Hypothyroidism, unspecified; O09.293 Supervision of pregnancy with other poor reproductive or obstetric history, third trimester; O24.410 Gestational diabetes mellitus in pregnancy, diet controlled; O10.913 Unspecified pre-existing hypertension complicating pregnancy, third trimester; Z3A.30 30 weeks gestation of pregnancy; Z79.899 Other long term (current) drug therapy
CPT/HCPCS: 99214; G0463